=== PATIENT | male | born 1955 | race Caucasian/White ===

== ENCOUNTER 2018-03-01 19:54 | Emergency (ER) | payer OTHER ==
[2018-03-01] MEDS ORDERED: Lidocaine 1% 20 ML MDV INJECT ONE (19:55)
[2018-03-01] MEDS ORDERED: Diphtheria,Pertussis(Acell),Tetanus Vaccine 0.5 ML Syringe IM ONE (19:56)
--- NOTE | 2018-03-01 20:09 | EDM.PDOC ---
ED HPI GENERAL MEDICAL PROBLEM - General Stated Complaint: L HAND LACERATION Time Seen by Provider: 03/01/18 19:57 Source of Information: Reports: Patient History Limitations: Reports: No Limitations - History of Present Illness INITIAL COMMENTS - FREE TEXT/NARRATIVE: Pt. states he was working with a trailer latch and accidentally cut his hand. Does not know when he had last tetnus shot. 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 ED EXAM, SKIN/RASH Exam: See Below Exam Limited By: No Limitations General Appearance: Alert, WD/WN, No Apparent Distress Head: Atraumatic, Normocephalic Neck: Normal Inspection, Supple, Non-Tender, Full Range of Motion Extremities: Normal Inspection, Normal Range of Motion, Non-Tender, No Pedal Edema, Normal Capillary Refill Neurological: Alert, Oriented, CN II-XII Intact Psychiatric: Normal Affect, Normal Mood Skin: Wound/Incision (laceration left proximal thumb area 3 cm long x 0.5 cm wide with depth 0.25.), Other (bleeding controlled.) Location, Skin: Upper Extremity, Left ED WOUND PROCEDURES - Laceration/Wound Repair Left Upper Hand Appearance: Subcutaneous, Linear, Clean Distal NVT: Neuro & Vascular Intact, No Tendon Injury Anesthetic Type: Local Local Anesthesia - Lidocaine (Xylocaine): 1% Plain Local Anesthetic Volume: 4cc Skin Prep: Other (Saf-clens) Wound Exploration, Debridement, Revision: No Foreign Material Found Suture Size: 3-0 # of Sutures: 4 (tolerated well) Suture Type: Nylon, Interrupted Sterile Dressing Applied: Nurse Tetanus Status Addressed: Yes Complications: None Course - Vital Signs Text/Narrative:: Cleansed wound with Saf clens. Numbed with Lidocaine 1%. Four 3-0 sutures applied without complication. Pt. has normal movement in left thumb, fingers; sensation is intact. Neurovascular intact. - Orders/Labs/Meds Orders: Active Orders 24 hr Category Date Time Status Vaccines to be Administered [RC] PER UNIT ROUTINE Care 03/01/18 19:56 Ordered Meds: Medications Discontinued Medications Generic Name Dose Route Start Last Admin Trade Name Freq PRN Reason Stop Dose Admin Diphtheria/Tetanus/Acell Pertussis 0.5 ml 03/01/18 19:56 Adacel IM 03/01/18 19:57 .ONCE ONE Lidocaine HCl 20 ml 03/01/18 19:55 Xylocaine 1% INJECT 03/01/18 19:56 ONETIME ONE Departure - Departure Time of Disposition: 20:32 Disposition: Home, Self-Care 01 Condition: Good Clinical Impression: Laceration - Discharge Information Additional Instructions: Keep area clean and dry. Have sutures removed in 7-10 days. Return if further bleeding or worsening symptoms. May apply Neosporin twice daily and change wrap daily as needed. - My Orders Last 24 Hours: My Active Orders 03/01/18 19:56 Vaccines to be Administered [RC] PER UNIT ROUTINE - Assessment/Plan Last 24 Hours: My Active Orders 03/01/18 19:56 Vaccines to be Administered [RC] PER UNIT ROUTINE
[2018-03-01] MEDS ORDERED: Bacitracin/Neomycin/Polymyxin B Oint 28.4 GM Tube TOP ONE (20:17)
[2018-03-01] MEDS ORDERED: Bacitracin/Neomycin/Polymyxin B Oint 0.9 GM U/D Packet ONE (20:18)
== END 2018-03-01 20:36 | disposition home or self-care (01) ==
LOC: CC.ED 19:54
DX: S61.412A Laceration without foreign body of left hand, initial encounter (principal); Z23 Encounter for immunization; Z79.899 Other long term (current) drug therapy; W26.9XXA Contact with unspecified sharp object(s), initial encounter; Z79.82 Long term (current) use of aspirin
CPT/HCPCS: 12002; 90471; 90715; 99282; A9270-GY

== ENCOUNTER 2019-09-12 15:33 | Emergency (ER) | payer OTHER ==
--- NOTE | 2019-09-12 15:56 | EDM.PDOC ---
ED HPI GENERAL MEDICAL PROBLEM - General Chief Complaint: Respiratory Problem Stated Complaint: SOB Time Seen by Provider: 09/12/19 15:45 Source of Information: Reports: Patient History Limitations: Reports: No Limitations - History of Present Illness INITIAL COMMENTS - FREE TEXT/NARRATIVE: This patient is a 64 year old male that presents to the ER. Patient reports that all of a sudden 2 hours ago he was walking up stairs and became very short of breath. Patient reports that he then went to sit down and watch football, but was still short of breath. Patient reports that with rest his shortness of breath is improved, but still present. Patient reports coming here and walking down the [place] to nurses station he became more short of breath again, but improved some when sitting in the ER stretcher now. Patient denies any other complaints. Patient denies any illnesses, cough, congestion, drainage. He denies any chest pain or any pain complaints. He denies nausea. He denies any cardiac or lung history. He does report hx of HTN. Reports sometimes he forgets to take his medications. Onset: Today Onset Date: 09/12/19 Onset Time: 12:00 Duration: Hour(s): (2) Severity: Moderate Improves with: Reports: Rest Worsens with: Reports: Other (activity) Context: Reports: Activity Associated Symptoms: Reports: Shortness of Breath. Denies: Confusion, Chest Pain, Cough, cough w sputum, Diaphoresis, Fever/Chills, Headaches, Loss of Appetite, Malaise, Nausea/Vomiting, Rash, Seizure, Syncope, Weakness - Related Data Allergies Allergy/AdvReac Type Severity Reaction Status Date / Time No Known Allergies Allergy Verified 03/01/18 19:57 Home Meds: Home Meds Aspirin [Shawna Chewable] 81 mg PO DAILY 03/01/18 [History] L.acidoph,Paracasei, B.lactis [Probiotic] 1 cap PO DAILY 03/01/18 [History] Albuterol/Ipratropium [DuoNeb 3.0-0.5 MG/3 ML] 3 ml .XX Q4H PRN #120 neb [Rx] Amoxicillin/Clavulanate K [Augmentin 875-125 MG] 1 tab PO BID #20 tablet [Rx] Losartan [Cozaar] 50 mg PO DAILY 09/12/19 [History] Past Medical History HEENT History: Reports: None Cardiovascular History: Reports: None Respiratory History: Reports: None Gastrointestinal History: Reports: None Genitourinary History: Reports: None Musculoskeletal History: Reports: None Neurological History: Reports: None Psychiatric History: Reports: None Endocrine/Metabolic History: Reports: None Hematologic History: Reports: None Immunologic History: Reports: None Oncologic (Cancer) History: Reports: None Dermatologic History: Reports: None - Infectious Disease History Infectious Disease History: Reports: None - Past Surgical History GI Surgical History: Reports: Cholecystectomy Social & Family History - Family History Family Medical History: Noncontributory ED ROS GENERAL - Review of Systems Review Of Systems: See Below Constitutional: Reports: No Symptoms HEENT: Reports: No Symptoms Respiratory: Reports: No Symptoms Cardiovascular: Reports: Dyspnea on Exertion. Denies: Chest Pain, Edema, Lightheadedness, Palpitations, Syncope Endocrine: Reports: No Symptoms GI/Abdominal: Reports: No Symptoms. Denies: Abdominal Pain, Diarrhea, Nausea, Vomiting : Reports: No Symptoms Musculoskeletal: Reports: No Symptoms Skin: Reports: No Symptoms Neurological: Reports: No Symptoms Psychiatric: Reports: No Symptoms Hematologic/Lymphatic: Reports: No Symptoms Immunologic: Reports: No Symptoms ED EXAM, GENERAL - Physical Exam Exam: See Below Exam Limited By: No Limitations General Appearance: Alert, WD/WN, No Apparent Distress, Anxious Eye Exam: Bilateral Eye: Normal Inspection, PERRL Ears: Normal External Exam, Normal Canal, Hearing Grossly Normal, Normal TMs Ear Exam: Bilateral Ear: Auricle Normal, Canal Normal, TM normal Nose: Normal Inspection, Normal Mucosa, No Blood Throat/Mouth: Normal Inspection, Normal Lips, Normal Teeth, Normal Gums, Normal Oropharynx, Normal Voice, No Airway Compromise Head: Atraumatic, Normocephalic Neck: Normal Inspection, Supple, Non-Tender, Full Range of Motion Respiratory/Chest: No Respiratory Distress, No Accessory Muscle Use, Wheezing ( mild expiratory) Cardiovascular: Normal Peripheral Pulses, Regular Rate, Rhythm, No Edema, No Gallop, No JVD, No Murmur, No Rub Peripheral Pulses: 2+: Radial (L), Radial (R), Posterior Tibial (L), Posterior Tibial (R) GI/Abdominal: Normal Bowel Sounds, Soft, Non-Tender, No Organomegaly, No Distention, No Abnormal Bruit, No Mass, Pelvis Stable Back Exam: Normal Inspection, Full Range of Motion Extremities: Normal Inspection, Normal Range of Motion, Non-Tender, No Pedal Edema, Normal Capillary Refill Neurological: Alert, Oriented, Normal Cognition, Normal Gait, No Motor/Sensory Deficits Psychiatric: Normal Affect, Anxious Skin Exam: Warm, Dry, Intact, Normal Color, No Rash Lymphatic: No Adenopathy EKG INTERPRETATION EKG Date: 09/12/19 Time: 15:48 Rhythm: NSR Rate (Beats/Min): 75 ST-T: Normal Course - Vital Signs Last Recorded V/S: Last Vital Signs Temp 96.9 F 09/12/19 15:34 Pulse 64 09/12/19 17:55 Resp 18 09/12/19 17:55 BP 158/79 H 09/12/19 17:55 Pulse Ox 96 09/12/19 17:55 - Orders/Labs/Meds Orders: Active Orders 24 hr Category Date Time Status EKG Documentation Completion [RC] STAT Care 09/12/19 15:50 Active RT Aerosol Therapy [RC] ASDIRECTED Care 09/12/19 19:00 Active Ang Chest [CT] Stat Exams 09/12/19 16:41 Taken Chest 2V [CR] Stat Exams 09/12/19 15:37 Taken C-REACTIVE PROTEIN [CHEM] Stat Lab 09/12/19 18:59 Ordered CULTURE BLOOD [BC] Stat Lab 09/12/19 19:00 Ordered CULTURE BLOOD [BC] Stat Lab 09/12/19 19:00 Ordered CULTURE SPUTUM + SMEAR [RM] Stat Lab 09/12/19 19:20 Ordered LACTIC ACID [CHEM] Stat Lab 09/12/19 18:59 Ordered TROPONIN I [CHEM] Stat Lab 09/12/19 19:15 Ordered Blood Culture x2 Reflex Set [OM.PC] Stat Oth 09/12/19 18:59 Ordered Labs: Laboratory Tests 09/12/19 09/12/19 09/12/19 Range/Units 16:14 16:14 16:14 WBC 7.1 (5.0-10.0) 10^3/uL RBC 4.64 (4.50-6.00) 10^6/uL Hgb 14.4 (14.0-18.0) g/dL Hct 42.5 (40.0-54.0) % MCV 91.6 (82.0-94.0) fL MCH 31.0 (27.0-32.0) pg MCHC 33.9 (33.0-38.0) g/dL RDW Coeff of Sameer 13.2 (11.0-15.0) % Plt Count 215 (150-400) 10^3/uL Neut % (Auto) 60.6 (35-85) % Lymph % (Auto) 26.1 (10-55) % [place] % (Auto) 8.5 (0-16) % Eos % (Auto) 4.4 (0-5) % Baso % (Auto) 0.4 (0-3) % Neut # (Auto) 4.27 (1.80-7.00) 10^3/uL Lymph # (Auto) 1.84 (1.00-4.80) 10^3/uL [place] # (Auto) 0.60 (0.00-0.80) 10^3/uL Eos # (Auto) 0.31 (0.00-0.45) 10^3/uL Baso # (Auto) 0.03 10^3/uL D-Dimer, Quantitative 0.40 (0.00-0.50) Sodium 144 (136-145) mEq/L Potassium 4.4 D (3.5-5.0) mEq/L Chloride 108 H (98-106) mEq/L Carbon Dioxide 29 (21-32) mmol/L BUN 19 H (7-18) mg/dL Creatinine 1.0 (0.7-1.3) mg/dL Est Cr Clr Drug Dosing 84.07 mL/min Estimated GFR (MDRD) > 60 (>=60) mL/min Glucose 112 H (75-99) mg/dL Calcium 8.8 (8.4-10.1) mg/dL Magnesium 2.1 (1.8-2.4) mg/dL Total Bilirubin 0.3 (0.0-1.0) mg/dL AST 19 (15-37) U/L ALT 24 (12-78) U/L Alkaline Phosphatase 71 (46-116) U/L Creatine Kinase 151 (35-232) U/L Troponin I < 0.017 (0.00-0.06) ng/mL NT-Pro-B Natriuret Pep 109 (0-1000) pg/mL Total Protein 7.2 (6.4-8.2) g/dL Albumin 3.7 (3.4-5.0) g/dL Meds: Medications Discontinued Medications Generic Name Dose Route Start Last Admin Trade Name Lluvia PRN Reason Stop Dose Admin Albuterol/Ipratropium 3 ml 09/12/19 19:00 09/12/19 19:18 Duoneb 3.0-0.5 Mg/3 Ml NEB 09/12/19 19:01 3 ml ONETIME ONE Administration Ceftriaxone Sodium 1 gm 09/12/19 19:19 Rocephin IVPUSH 09/12/19 19:20 ONETIME ONE Sodium Chloride 1,000 mls @ 1,000 mls/hr 09/12/19 16:52 09/12/19 18:30 Normal Saline IV 09/12/19 17:51 1,000 mls/hr .BOLUS ONE Administration Iopamidol 100 ml 09/12/19 16:48 09/12/19 16:58 Isovue-370 (76%) IVPUSH 09/12/19 16:49 100 ml ONETIME ONE Administration - Radiology Interpretation Free Text/Narrative:: CXR: No infiltrates, no pulmonary edema, no cardiomegaly. CTA CHEST: Ground glass right greater than left consistent with a aspiration pneumonia. CT Results Date: 09/12/19 CT Results Time: 18:55 - Re-Assessments/Exams Free Text/Narrative Re-Assessment/Exam: 09/12/19 16:46 All patient labs including d-dimer are normal. With patient history of an sudden abrupt dypsnea, oxygen saturation of 94%. I will angio his chest to r/o PE. I will also redraw troponin 3 hours past first draw. Discussed all risks vs benefits with patient and . They agree to the angio and repeat troponin. 09/12/19 19:[address] results with radiologist. The ct is consistent with a possible aspiration pneumonia. I then discussed this with the patient and patient . The patient does not recall any difficulty swallowing or aspirating or choking anything. Patient denies any stroke symptoms, confusion, unilateral weaknesses. Patient denies congestion, drainage, fever. The patient is alert and oriented. 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 He also reports he uses a CPAP at home and after ozone washing, it is wet. Discussed the option with the patient to be admitted. However, the patient prefers to go home. I do believe this is reasonable as he does not have tachycardia, his oxygen saturation is now 96% on RA, no elevation of wbc, and no fever. He is not in distress. Discussed with the patient to see his PCP this week. Also discussed possibility of stress test. The patient and are educated to return to the ER for any concerns or worsens. They voice back understanding. Will discharge if troponin is negative. Departure - Departure Time of Disposition: 19:33 Disposition: Home, Self-Care 01 Condition: Fair Clinical Impression: Pneumonia Qualifiers: Pneumonia type: aspiration pneumonia Aspiration pneumonia type: unspecified Laterality: bilateral Lung location: upper lobe of lung Qualified Code(s): J69.0 - Pneumonitis due to inhalation of food and vomit Dyspnea Qualifiers: Dyspnea type: dyspnea on exertion Qualified Code(s): R06.09 - Other forms of dyspnea - Discharge Information *PRESCRIPTION DRUG MONITORING PROGRAM REVIEWED*: Not Applicable *COPY OF PRESCRIPTION DRUG MONITORING REPORT IN PATIENT NATASHA: Not Applicable Prescriptions: Albuterol/Ipratropium [DuoNeb 3.0-0.5 MG/3 ML] 3 ml .XX Q4H PRN #120 neb PRN Reason: Shortness Of Breath Amoxicillin/Clavulanate K [Augmentin 875-125 MG] 1 tab PO BID #20 tablet Instructions: Shortness of Breath, Adult, Vhbw-[id number], Aspiration Pneumonia Referrals: Raymond Bazan MD [Primary Care Provider] - Forms: ED Department Discharge Additional Instructions: Followup with your primary care provider this week by calling office tomorrow morning for appointment. Return to the ER immediately if you worsen, shortness of breath, fever, weakness , cant swallow, passing out, chest pain, or any concerns Increase fluids Continue your CPAP machine: Ensure clean No working in the [place] Please return sputum culture in cup provided to the lab here in [place] Neb machine Duonebs every 4-6 hours as needed for shortness of breath #120 no refill (sent to [facility]) Augmentin 875mg 1 pill twice a day for 10 days #20 no refill (Sent to [facility]) Sepsis Event Note - Evaluation Sepsis Screening Result: No Definite Risk - Focused Exam Vital Signs: Vital Signs Temp Pulse Resp BP Pulse Ox 09/12/19 17:55 64 18 158/79 H 96 09/12/19 15:34 96.9 F 79 18 190/91 H 94 L Date Exam was Performed: 09/12/19 Time Exam was Performed: 19:37 - My Orders Last 24 Hours: My Active Orders 09/12/19 15:37 Chest 2V [CR] Stat 09/12/19 15:50 EKG Documentation Completion [RC] STAT 09/12/19 16:41 Ang Chest [CT] Stat 09/12/19 18:59 C-REACTIVE PROTEIN [CHEM] Stat LACTIC ACID [CHEM] Stat Blood Culture x2 Reflex Set [OM.PC] Stat 09/12/19 19:00 RT Aerosol Therapy [RC] ASDIRECTED CULTURE BLOOD [BC] Stat CULTURE BLOOD [BC] Stat 09/12/19 19:15 TROPONIN I [CHEM] Stat 09/12/19 19:20 CULTURE SPUTUM + SMEAR [RM] Stat - Assessment/Plan Last 24 Hours: My Active Orders 09/12/19 15:37 Chest 2V [CR] Stat 09/12/19 15:50 EKG Documentation Completion [RC] STAT 09/12/19 16:41 Ang Chest [CT] Stat 09/12/19 18:59 C-REACTIVE PROTEIN [CHEM] Stat LACTIC ACID [CHEM] Stat Blood Culture x2 Reflex Set [OM.PC] Stat 09/12/19 19:00 RT Aerosol Therapy [RC] ASDIRECTED CULTURE BLOOD [BC] Stat CULTURE BLOOD [BC] Stat 09/12/19 19:15 TROPONIN I [CHEM] Stat 09/12/19 19:20 CULTURE SPUTUM + SMEAR [RM] Stat Plan: PLEASE SEE RN NOTE FOR PFSH
[2019-09-12 16:44] LABS: CHLORIDE,CL 108 mEq/L (98-106); SODIUM,NA 144 mEq/L (136-145)
[2019-09-12] MEDS ORDERED: Iopamidol 755 Mg/ML 100 ML Bottle IVPUSH ONE (16:48)
[2019-09-12] MEDS ORDERED: Sodium Chloride 0.9% 1,000 ML IV ONE (16:52)
[2019-09-12] MEDS ORDERED: Albuterol/Ipratropium 3.0-0.5 MG/3 ML Neb Soln NEB ONE (19:00)
[2019-09-12] MEDS ORDERED: cefTRIAXone 1 GM Vial IVPUSH ONE (19:19)
== END 2019-09-12 20:30 | disposition home or self-care (01) ==
LOC: CC.ED 15:33
DX: J69.0 Pneumonitis due to inhalation of food and vomit (principal); Z79.82 Long term (current) use of aspirin
CPT/HCPCS: 36415; 71046; 71275; 80053; 82550; 83605; 83735; 83880; 84484; 85025; 85379; 86140; 87040; 93005; 96361; 96374; 99285; J0696; J7030; Q9967; J7620-GY